=== PATIENT | female | born 2000 | race Hispanic/Latino ===

== ENCOUNTER 2019-01-09 23:12 | Emergency (ER) | payer MEDICAID, OTHER ==
[2019-01-09 23:55] LABS: BASOPHILS % (AUTO) 0.5 % (0.0-5.0); HEMATOCRIT 39.9 % (36-48); MEAN CORPUSCULAR HEMOGLOBIN 27.5 pg (27.0-33.0); MEAN CORPUSCULAR HGB CONC 33.4 g/dL (32.0-36.0); MEAN CORPUSCULAR VOLUME 82.3 fL (80-100); MONOCYTES % (AUTO) 7.1 % (3.0-13.0); NEUTROPHILS % (AUTO) 69.4 % (40.0-77.0); PLATELET COUNT (AUTO) 329 K/uL (130-400); RED BLOOD CELL COUNT(AUTO) 4.84 MIL/uL (4.00-5.50); RED CELL DISTRIBUTION WIDTH 13.8 % (11.0-15.5); WHITE BLOOD COUNT (AUTO) 11.9 K/uL (4.8-10.8)
[2019-01-10 00:04] LABS: CREATININE 0.8 mg/dL (0.5-1.5); POTASSIUM 3.6 mmol/L (3.5-5.1)
[2019-01-10 00:09] LABS: ALBUMIN 4.2 g/dL (3.5-5.0); BILIRUBIN,TOTAL 0.3 mg/dL (0.2-1.0); CRP QUANTITATIVE 25.8 mg/L (0.00-9.0); TOTAL PROTEIN, SERUM 8.4 g/dL (6.0-8.3)
[2019-01-10 00:10] LABS: HCG,QUAL RESULT NEGATIVE (NEGATIVE)
[2019-01-10 00:11] LABS: APPEARANCE,URINE Clear (CLEAR); BILIRUBIN,URINE Negative (NEGATIVE); COLOR,URINE Yellow (YELLOW); GLUCOSE, URINE (UA) Negative (NEGATIVE); KETONES,URINE Negative (NEGATIVE); LEUKOCYTE ESTERASE ,URINE Moderate (NEGATIVE); NITRATE,URINE Negative (NEGATIVE); OCCULT BLOOD,URINE Negative (NEGATIVE); PROTEIN,URINE Negative (NEGATIVE)
[2019-01-10 00:28] LABS: AMORPHOUS SEDIMENT,UR Moderate /LPF (None Seen); BACTERIA,URINE Few /HPF (None Seen); MUCUS,URINE Moderate LPF (None Seen); SQUAMOUS EPITHELIAL CELL,UR Moderate /HPF (0-2)
[2019-01-10] MEDS ORDERED: KETOROLAC TROMETHAMINE 30MG/ML ONE (00:39)
[2019-01-10] MEDS ORDERED: SULFAMETHOX-TMP DS 800/160 TAB ONE (01:03)
[2019-01-10 01:05] LABS: ERYTHROCYTE SEDIMENTATION RATE 15 MM/HR (0-20)
== END 2019-01-10 01:25 | disposition home or self-care (01) ==
LOC: EDH 23:12
DX: L03.114 Cellulitis of left upper limb (principal); N30.00 Acute cystitis without hematuria
CPT/HCPCS: 36415 ×2; 73090; 80053; 81001; 81025; 85025; 85651; 86140; 87040 ×2; 96374; 99284; J1885

== ENCOUNTER 2024-07-18 20:13 | Emergency (ER) | payer SELFPAY ==
[~2024-07-18] VITALS: Ht 152.4 cm; Wt 72.6 kg
[2024-07-18 20:22] VITALS: TEMP 98.3
[2024-07-18] MEDS: Solu-medROL 125MG VIAL IVP ONE (21:12)
[2024-07-18] MEDS: 0.9% NACL 500ML IV.SOLN 500 ML IV ONE (21:13)
[2024-07-18] MEDS: DiphenhydrAMINE HCL 50 MG/ML VIAL IV ONE (21:13)
[2024-07-18] MEDS: prednisoLONE 15 MG/5 ML SOLN PO STA (21:13)
[2024-07-18 21:23] VITALS: BP 115/77; PULSE 100; RESP 18; O2SAT 98
[2024-07-18] MEDS ORDERED: LORA10TA7 PO (21:48)
[2024-07-18] MEDS ORDERED: PRED10TA23 PO (21:48)
== END 2024-07-18 22:04 | disposition home or self-care (01) ==
LOC: EDH 20:13
DX: T78.1XXA Other adverse food reactions, not elsewhere classified, initial encounter (principal); Z91.013 Allergy to seafood; X58.XXXA Exposure to other specified factors, initial encounter
CPT/HCPCS: 99284; 96374; 96375; 81025; J7040; J1200; J2919